=== PATIENT | male | born 1965 | race African-American/Black ===

== ENCOUNTER 2020-08-25 10:16 | Inpatient (IN) | payer MEDICAID ==
[~2020-08-25] VITALS: Ht 180.3 cm; Wt 105.7 kg
[2020-08-25 10:53] LABS: BASOPHILS % 0.9 % (0.0-2.0); EOSINOPHILS % 0.4 % (0.0-5.0); HEMATOCRIT. 44.6 % (42.0-52.0); HEMOGLOBIN. 15.2 g/dL (14.0-18.0); LYMPHOCYTES % 13.7 % (20.0-50.0); MEAN CORPUSCULAR HEMOGLOBIN 28.6 pg (28.0-32.0); MEAN CORPUSCULAR VOLUME 83.7 fL (80.0-94.0); MEAN PLATELET VOLUME 8.4 fl (7.4-10.4); MONOCYTES % 6.5 % (2.0-8.0); NEUTROPHILS % 78.5 % (40.0-76.0); PLATELET 224 x1000/uL (130-400); RED BLOOD CELL COUNT 5.33 mill/uL (4.7-6.1); RED CELL DISTRIBUTION WIDTH 15.6 % (11.6-14.6)
[2020-08-25 10:57] LABS: CHLORIDE 102 mEq/L (98-107)
[2020-08-25 10:59] LABS: PROTHROMBIN TIME 10.5 sec (9.6-11.0)
[2020-08-25 11:01] LABS: ETHANOL BLOOD < 10 mg/dL
[2020-08-25 11:04] LABS: LDL CHOLESTEROL 236 mg/dL (5-100)
[2020-08-25] MEDS ORDERED: ASPIRIN 325MG TABLET PO ONE (11:15)
[2020-08-25] MEDS ORDERED: ATORVASTATIN CALCIUM 40MG TABLET PO SCH (11:15)
[2020-08-25] MEDS ORDERED: CLOPIDOGREL 75MG TABLET PO ONE (11:30)
[2020-08-25] MEDS ORDERED: INSULIN REGULAR (HUMULIN R) 300UNITS/3ML VIAL IV ONE (12:00)
[2020-08-25] MEDS ORDERED: SODIUM CHLORIDE 0.9% 500 ML IV ONE (12:00)
[2020-08-25 12:39] LABS: CLARITY URINE CLEAR (CLEAR); COLOR URINE YELLOW (YELLOW); KETONES URINE 1+ (NEGATIVE); LEUKOCYTE ESTERASE URINE NEGATIVE (NEGATIVE); NITRITE URINE NEGATIVE (NEGATIVE); OCCULT BLOOD URINE TRACE (NEGATIVE); PROTEIN URINE 2+ (NEGATIVE); SPECIFIC GRAVITY URINE 1.047 (1.005-1.030)
[2020-08-25] MEDS ORDERED: ONDANSETRON HCL 4MG/2ML INJ IV PRN (12:45)
[2020-08-25] MEDS ORDERED: DEXTROSE 50% WATER 50ML SYRINGE IV PRN (12:45)
[2020-08-25 12:57] LABS: *AMPHETAMINES SCREEN URINE NEGATIVE (NEGATIVE); *BARBITURATES SCREEN URINE NEGATIVE (NEGATIVE); *BENZODIAZEPINES SCREEN URINE NEGATIVE (NEGATIVE); *COCAINE SCREEN URINE NEGATIVE (NEGATIVE)
[2020-08-25 12:58] LABS: METHADONE URINE SCREEN NEGATIVE (NEGATIVE); OPIATES URINE SCREEN NEGATIVE (NEGATIVE)
[2020-08-25] MEDS: BLOOD SUGAR DIAGNOSTIC STRIP TEST SCH ×3 (13:00→20:43)
[2020-08-25] MEDS ORDERED: LABETALOL 5MG/ML SYR 20 MG/4 ML SYRINGE IV NR (13:00)
[2020-08-25] MEDS ORDERED: LOSARTAN POTASSIUM 50 MG TABLET PO SCH ×2 (13:00→16:00)
[2020-08-25 13:01] LABS: CANNABINOID URINE SCREEN NEGATIVE (NEGATIVE); PHENCYCLIDINE URINE SCREEN NEGATIVE (NEGATIVE)
[2020-08-25 14:00] VITALS: BP 200/93
[2020-08-25 14:25] VITALS: BP 202/101
[2020-08-25] MEDS ORDERED: IOHEXOL-350 100 ML BOTTLE ONE (14:27)
[2020-08-25] MEDS: AMLODIPINE 10MG TABLET PO SCH (15:47)
[2020-08-25] MEDS: ENOXAPARIN 40MG/0.4ML SYR SUBCUT SCH (15:49)
[2020-08-25] MEDS: INSULIN LISPRO 100 UNITS/ML SUBCUT SCH ×3 (15:51→21:00)
[2020-08-25 16:00] VITALS: BP 225/121
[2020-08-25] MEDS: LOSARTAN POTASSIUM 50 MG TABLET PO SCH ×2 (16:00→22:11)
[2020-08-25] MEDS ORDERED: INSULIN GLARGINE UD 100 UNITS/ML SYR SUBCUT NR (16:30)
[2020-08-25 18:00] VITALS: BP 138/81
[2020-08-25 20:00] VITALS: BP 177/85
[2020-08-25] MEDS: ACETAMINOPHEN 325MG TABLET PO PRN (20:43)
[2020-08-25 22:00] VITALS: BP 169/95
[2020-08-25] MEDS: INSULIN GLARGINE UD 100 UNITS/ML SYR SUBCUT SCH (22:13)
[2020-08-26] VITALS (14 sets, daily range): BP systolic 118–202; BP diastolic 58–109
[2020-08-26] MEDS: ACETAMINOPHEN 325MG TABLET PO PRN (03:05)
[2020-08-26] MEDS: BLOOD SUGAR DIAGNOSTIC STRIP TEST SCH ×4 (07:51→20:51)
[2020-08-26] MEDS: CLOPIDOGREL 75MG TABLET PO SCH (08:48)
[2020-08-26] MEDS: LOSARTAN POTASSIUM 50 MG TABLET PO SCH ×2 (08:48→20:50)
[2020-08-26] MEDS: ASPIRIN 81MG TABLET PO SCH (08:48)
[2020-08-26] MEDS: INSULIN LISPRO 100 UNITS/ML SUBCUT SCH ×4 (08:48→21:06)
[2020-08-26] MEDS: AMLODIPINE 10MG TABLET PO SCH (08:49)
[2020-08-26] MEDS: CLONIDINE 0.1MG TABLET PO PRN (08:57)
[2020-08-26] MEDS: INSULIN GLARGINE UD 100 UNITS/ML SYR SUBCUT SCH ×2 (09:57→22:04)
[2020-08-26] MEDS: ENOXAPARIN 40MG/0.4ML SYR SUBCUT SCH (12:09)
[2020-08-26] MEDS: HYDRALAZINE HCL 100MG TABLET PO SCH ×3 (12:10→22:14)
[2020-08-26 17:49] LABS: BASOPHILS % 0.9 % (0.0-2.0); HEMATOCRIT. 45.7 % (42.0-52.0); HEMOGLOBIN. 15.7 g/dL (14.0-18.0); LYMPHOCYTES % 21.2 % (20.0-50.0); MEAN CORPUSCULAR HEMOGLOBIN 28.8 pg (28.0-32.0); MEAN CORPUSCULAR VOLUME 83.8 fL (80.0-94.0); MEAN PLATELET VOLUME 8.3 fl (7.4-10.4); MONOCYTES % 11.1 % (2.0-8.0); NEUTROPHILS % 65.8 % (40.0-76.0); PLATELET 250 x1000/uL (130-400); RED BLOOD CELL COUNT 5.45 mill/uL (4.7-6.1); RED CELL DISTRIBUTION WIDTH 16.2 % (11.6-14.6)
[2020-08-26 18:12] LABS: CHLORIDE 107 mEq/L (98-107)
[2020-08-26] MEDS ORDERED: POTASSIUM CHLORIDE 20MEQ TABLET SR PO NR (19:00)
[2020-08-26] MEDS: ATORVASTATIN CALCIUM 40MG TABLET PO SCH (20:50)
[2020-08-26] MEDS: LORAZEPAM 2MG/ML CPJ IV PRN (22:22)
[2020-08-27] VITALS (12 sets, daily range): BP systolic 122–181; BP diastolic 36–125
[2020-08-27 06:00] LABS: BASOPHILS % 0.5 % (0.0-2.0); EOSINOPHILS % 0.8 % (0.0-5.0); HEMATOCRIT. 46.2 % (42.0-52.0); HEMOGLOBIN. 15.9 g/dL (14.0-18.0); LYMPHOCYTES % 17.8 % (20.0-50.0); MEAN CORPUSCULAR VOLUME 84.5 fL (80.0-94.0); MEAN PLATELET VOLUME 8.6 fl (7.4-10.4); MONOCYTES % 7.2 % (2.0-8.0); NEUTROPHILS % 73.7 % (40.0-76.0); PLATELET 256 x1000/uL (130-400); RED BLOOD CELL COUNT 5.47 mill/uL (4.7-6.1); RED CELL DISTRIBUTION WIDTH 15.8 % (11.6-14.6)
[2020-08-27 06:03] LABS: CHLORIDE 103 mEq/L (98-107)
[2020-08-27 06:13] LABS: LDL CHOLESTEROL 236 mg/dL (5-100)
[2020-08-27 06:14] LABS: HDL CHOLESTEROL 57 mg/dL (40-59)
[2020-08-27 06:16] LABS: T4 FREE 0.91 ng/dL (0.76-1.46)
[2020-08-27 06:24] LABS: FOLIC ACID (FOLATE) SERUM >20 ng/mL ng/mL (>5.38)
[2020-08-27 06:35] LABS: VITAMIN B12 SERUM 761 pg/mL (211-911)
[2020-08-27] MEDS: BLOOD SUGAR DIAGNOSTIC STRIP TEST SCH ×4 (07:48→20:08)
[2020-08-27] MEDS: INSULIN LISPRO 100 UNITS/ML SUBCUT SCH ×4 (08:10→21:00)
[2020-08-27] MEDS: LOSARTAN POTASSIUM 50 MG TABLET PO SCH ×2 (09:15→21:09)
[2020-08-27] MEDS: CLOPIDOGREL 75MG TABLET PO SCH (09:15)
[2020-08-27] MEDS: AMLODIPINE 10MG TABLET PO SCH (09:16)
[2020-08-27] MEDS: ASPIRIN 81MG TABLET PO SCH (09:16)
[2020-08-27] MEDS: INSULIN GLARGINE UD 100 UNITS/ML SYR SUBCUT SCH ×2 (10:50→21:10)
[2020-08-27] MEDS: CLONIDINE 0.1MG TABLET PO PRN ×2 (10:58→22:23)
[2020-08-27] MEDS: SODIUM CHLORIDE 0.9% 1,000 ML IV SCH (14:03)
[2020-08-27] MEDS: ENOXAPARIN 40MG/0.4ML SYR SUBCUT SCH (17:10)
[2020-08-27] MEDS ORDERED: CEFTRIAXONE 1 G PREMIX 50 ML IV SCH (17:15)
[2020-08-27 17:31] LABS: BG BASE EXCESS 0.5 mmol/L (-2.0-2.0); BG CARBOXYHEMOGLOBIN 0.9 % (0.5-1.5); BG DEOXYHEMOGLOBIN 6.2 % (0.0-5.0); BG FRACTION INSPIRED OXYGEN 21; BG HCO3 ACT 24.7 mmol/L (22.0-26.0); BG METHEMOGLOBIN 0.1 % (0.0-1.5); BG OXYGEN SATURATION 93.7 % (92.0-98.5); BG OXYHEMOGLOBIN 92.8 % (94.0-97.0); BG PCO2 38.7 mmHg (35.0-45.0); BG PH 7.423 (7.350-7.450); BG PO2 67.1 mmHg (75.0-100.0); BG SAMPLE SITE RIGHT RADIAL; BG TOTAL HEMOGLOBIN 15.7 g/dL (12.0-18.0); BG VENT MODE ROOM AIR
[2020-08-27] MEDS: CEFTRIAXONE 1,000 MG in DEXTROSE 5% WATER 50 ML IV SCH (17:49)
[2020-08-27] MEDS: ATORVASTATIN CALCIUM 40MG TABLET PO SCH (21:08)
[2020-08-27] MEDS: LORAZEPAM 2MG/ML CPJ IV PRN (21:09)
[2020-08-28] VITALS (12 sets, daily range): BP systolic 88–179; BP diastolic 53–123
[2020-08-28] MEDS: SODIUM CHLORIDE 0.9% 1,000 ML IV SCH (02:30)
[2020-08-28] MEDS: BLOOD SUGAR DIAGNOSTIC STRIP TEST SCH ×4 (07:30→20:38)
[2020-08-28] MEDS: INSULIN LISPRO 100 UNITS/ML SUBCUT SCH ×4 (08:00→20:38)
[2020-08-28] MEDS: ASPIRIN 81MG TABLET PO SCH (09:16)
[2020-08-28] MEDS: CLOPIDOGREL 75MG TABLET PO SCH (09:16)
[2020-08-28] MEDS: AMLODIPINE 10MG TABLET PO SCH (09:16)
[2020-08-28] MEDS: LOSARTAN POTASSIUM 50 MG TABLET PO SCH ×2 (09:17→20:37)
[2020-08-28] MEDS: INSULIN GLARGINE UD 100 UNITS/ML SYR SUBCUT SCH (10:00)
[2020-08-28] MEDS: HYDRALAZINE HCL 50MG TABLET PO SCH ×2 (12:15→20:38)
[2020-08-28] MEDS: ENOXAPARIN 40MG/0.4ML SYR SUBCUT SCH (13:46)
[2020-08-28] MEDS: DEXTROSE 5% WATER 1,000 ML IV SCH (18:41)
[2020-08-28] MEDS: CEFTRIAXONE 1,000 MG in DEXTROSE 5% WATER 50 ML IV SCH (18:42)
[2020-08-28] MEDS: CLONIDINE 0.1MG TABLET PO PRN (18:51)
[2020-08-28] MEDS: ATORVASTATIN CALCIUM 40MG TABLET PO SCH (20:37)
[2020-08-28] MEDS: LORAZEPAM 2MG/ML CPJ IV PRN (22:10)
[2020-08-29] VITALS (59 sets, daily range): BP systolic 81–195; BP diastolic 52–135
[2020-08-29] MEDS: CLONIDINE 0.1MG TABLET PO PRN ×2 (04:10→22:15)
[2020-08-29] MEDS: DEXTROSE 5% WATER 1,000 ML IV SCH ×2 (04:12→17:10)
[2020-08-29] MEDS: LORAZEPAM 2MG/ML CPJ IV PRN (07:47)
[2020-08-29] MEDS: BLOOD SUGAR DIAGNOSTIC STRIP TEST SCH ×4 (07:52→20:40)
[2020-08-29] MEDS: ASPIRIN 81MG TABLET PO SCH ×2 (08:39→08:49)
[2020-08-29] MEDS: AMLODIPINE 10MG TABLET PO SCH ×2 (08:40→08:50)
[2020-08-29] MEDS: LOSARTAN POTASSIUM 50 MG TABLET PO SCH ×3 (08:40→20:40)
[2020-08-29] MEDS: HYDRALAZINE HCL 50MG TABLET PO SCH ×2 (08:40→08:49)
[2020-08-29] MEDS: INSULIN LISPRO 100 UNITS/ML SUBCUT SCH ×4 (08:42→20:40)
[2020-08-29] MEDS: CLOPIDOGREL 75MG TABLET PO SCH ×2 (08:43→08:50)
[2020-08-29] MEDS ORDERED: ETOMIDATE 2MG/ML 10ML VIAL IV ONE (10:30)
[2020-08-29] MEDS: PROPOFOL 10MG/ML 100ML 100 ML IV PRN ×2 (10:54→16:47)
[2020-08-29] MEDS ORDERED: MORPHINE SULFATE 2 MG/ML CPJ (NOT FOR IM USE) IV PRN (11:15)
[2020-08-29] MEDS ORDERED: IOHEXOL-350 100 ML BOTTLE ONE (11:26)
[2020-08-29] MEDS ORDERED: PHENYLEPHRINE 50 MG in DEXT 5% WATER 245 ML IV PRN (12:15)
[2020-08-29 12:51] LABS: BG CARBOXYHEMOGLOBIN 0.4 % (0.5-1.5); BG DEOXYHEMOGLOBIN 1.1 % (0.0-5.0); BG FRACTION INSPIRED OXYGEN 100; BG HCO3 ACT 25.9 mmol/L (22.0-26.0); BG METHEMOGLOBIN 0.3 % (0.0-1.5); BG OXYGEN SATURATION 98.9 % (92.0-98.5); BG OXYHEMOGLOBIN 98.2 % (94.0-97.0); BG PCO2 51.6 mmHg (35.0-45.0); BG PH 7.318 (7.350-7.450); BG PO2 218.8 mmHg (75.0-100.0); BG SAMPLE SITE RIGHT RADIAL; BG VENT MODE VENT - AC
[2020-08-29] MEDS: MIDODRINE HCL 5MG TABLET PO SCH ×2 (13:00→17:00)
[2020-08-29] MEDS: ENOXAPARIN 40MG/0.4ML SYR SUBCUT SCH (13:39)
[2020-08-29] MEDS: PANTOPRAZOLE SODIUM 40 MG/VIAL IV SCH (13:40)
[2020-08-29] MEDS ORDERED: LIDOCAINE HCL 1% 20ML VIAL (Pyxis) INJ ONE (13:45)
[2020-08-29 17:51] LABS: BASOPHILS % 0.5 % (0.0-2.0); EOSINOPHILS % 1.7 % (0.0-5.0); HEMATOCRIT. 40.4 % (42.0-52.0); HEMOGLOBIN. 13.7 g/dL (14.0-18.0); MEAN CORPUSCULAR HEMOGLOBIN 29.2 pg (28.0-32.0); MEAN PLATELET VOLUME 7.9 fl (7.4-10.4); MONOCYTES % 12.5 % (2.0-8.0); NEUTROPHILS % 67.3 % (40.0-76.0); PLATELET 211 x1000/uL (130-400); RED BLOOD CELL COUNT 4.69 mill/uL (4.7-6.1)
[2020-08-29 18:02] LABS: CHLORIDE 106 mEq/L (98-107)
[2020-08-29] MEDS: CEFTRIAXONE 1,000 MG in DEXTROSE 5% WATER 50 ML IV SCH (18:30)
[2020-08-29 19:08] LABS: RNP ANTIBODY < 0.2 AI (0.0-0.9); SMITH ANTIBODY < 0.2 AI (0.0-0.9)
[2020-08-29] MEDS: ATORVASTATIN CALCIUM 40MG TABLET PO SCH (20:47)
[2020-08-29 23:25] LABS: BG BASE EXCESS -3.8 mmol/L (-2.0-2.0); BG CARBOXYHEMOGLOBIN 0.7 % (0.5-1.5); BG DEOXYHEMOGLOBIN 3.2 % (0.0-5.0); BG FRACTION INSPIRED OXYGEN 50; BG HCO3 ACT 21.1 mmol/L (22.0-26.0); BG OXYGEN SATURATION 96.8 % (92.0-98.5); BG OXYHEMOGLOBIN 96.1 % (94.0-97.0); BG PCO2 38.2 mmHg (35.0-45.0); BG PH 7.361 (7.350-7.450); BG PO2 94.4 mmHg (75.0-100.0); BG SAMPLE SITE RIGHT RADIAL; BG TOTAL HEMOGLOBIN 14.8 g/dL (12.0-18.0); BG VENT MODE MASK - VENTI
[2020-08-30] VITALS (57 sets, daily range): BP systolic 121–187; BP diastolic 39–129
[2020-08-30 04:07] LABS: ANTI-CARDIOLIPIN AB IGA < 9 APL U/mL (0-11); ANTI-CARDIOLIPIN AB IGG < 9 GPL U/mL (0-14); ANTI-CARDIOLIPIN AB IGM < 9 MPL U/mL (0-12)
[2020-08-30 05:38] LABS: CHLORIDE 106 mEq/L (98-107)
[2020-08-30 05:42] LABS: BASOPHILS % 0.8 % (0.0-2.0); EOSINOPHILS % 1.9 % (0.0-5.0); HEMATOCRIT. 40.7 % (42.0-52.0); HEMOGLOBIN. 13.8 g/dL (14.0-18.0); LYMPHOCYTES % 13.7 % (20.0-50.0); MEAN CORPUSCULAR HEMOGLOBIN 28.8 pg (28.0-32.0); MEAN PLATELET VOLUME 8.2 fl (7.4-10.4); MONOCYTES % 10.3 % (2.0-8.0); NEUTROPHILS % 73.3 % (40.0-76.0); PLATELET 215 x1000/uL (130-400); RED BLOOD CELL COUNT 4.79 mill/uL (4.7-6.1); RED CELL DISTRIBUTION WIDTH 15.5 % (11.6-14.6)
[2020-08-30] MEDS: BLOOD SUGAR DIAGNOSTIC STRIP TEST SCH ×4 (05:53→20:59)
[2020-08-30] MEDS: INSULIN LISPRO 100 UNITS/ML SUBCUT SCH ×4 (06:05→21:00)
[2020-08-30] MEDS: ENALAPRIL 1.25MG/ML VIAL 1ML IV PRN ×2 (06:30→18:36)
[2020-08-30] MEDS ORDERED: NITROGLYCERIN 50MG PREMIX 250 ML IV PRN (08:00)
[2020-08-30] MEDS: MIDODRINE HCL 5MG TABLET PO SCH (09:00)
[2020-08-30 09:11] LABS: ANTI-THROMBIN ACTIVITY 112 % (75-135); DRVVT LA 44.8 sec (0.0-47.0); PROTEIN C FUNCTIONAL 155 % (73-180); PTT-LA 39.4 sec (0.0-51.9)
[2020-08-30] MEDS: LOSARTAN POTASSIUM 50 MG TABLET PO SCH ×2 (09:32→20:58)
[2020-08-30] MEDS: CLOPIDOGREL 75MG TABLET PO SCH (09:32)
[2020-08-30] MEDS: ASPIRIN 81MG TABLET PO SCH (09:32)
[2020-08-30] MEDS: PANTOPRAZOLE SODIUM 40 MG/VIAL IV SCH (09:32)
[2020-08-30] MEDS: DEXTROSE 5% WATER 1,000 ML IV SCH (09:33)
[2020-08-30] MEDS: AMLODIPINE 10MG TABLET PO SCH (11:21)
[2020-08-30] MEDS: ENOXAPARIN 40MG/0.4ML SYR SUBCUT SCH (12:34)
[2020-08-30] MEDS: RISPERIDONE 0.25MG TABLET PO SCH (12:34)
[2020-08-30 13:07] LABS: LUPUS ANTICOAG INTERPRETATION Comment: (.)
[2020-08-30] MEDS: CEFTRIAXONE 1,000 MG in DEXTROSE 5% WATER 50 ML IV SCH (18:25)
[2020-08-30] MEDS: ATORVASTATIN CALCIUM 40MG TABLET PO SCH (20:56)
[2020-08-30] MEDS: MORPHINE SULFATE 2 MG/ML CPJ (NOT FOR IM USE) IV PRN (20:58)
[2020-08-30] MEDS: HYDRALAZINE HCL 50MG TABLET PO SCH (20:58)
[2020-08-31] VITALS (10 sets, daily range): BP systolic 127–179; BP diastolic 68–110
[2020-08-31] MEDS: DEXTROSE 5% WATER 1,000 ML IV SCH ×2 (04:46→09:46)
[2020-08-31] MEDS: ENALAPRIL 1.25MG/ML VIAL 1ML IV PRN (05:50)
[2020-08-31] MEDS: CLONIDINE 0.1MG TABLET PO PRN (06:48)
[2020-08-31] MEDS: AMLODIPINE 10MG TABLET PO SCH (08:01)
[2020-08-31] MEDS: CLOPIDOGREL 75MG TABLET PO SCH (08:01)
[2020-08-31] MEDS: ASPIRIN 81MG TABLET PO SCH (08:01)
[2020-08-31] MEDS: HYDRALAZINE HCL 50MG TABLET PO SCH ×2 (08:02→22:08)
[2020-08-31] MEDS: RISPERIDONE 0.25MG TABLET PO SCH (08:02)
[2020-08-31] MEDS: PANTOPRAZOLE SODIUM 40 MG/VIAL IV SCH (08:02)
[2020-08-31] MEDS: LOSARTAN POTASSIUM 50 MG TABLET PO SCH ×2 (08:02→22:07)
[2020-08-31] MEDS: BLOOD SUGAR DIAGNOSTIC STRIP TEST SCH ×4 (08:03→21:00)
[2020-08-31] MEDS: INSULIN LISPRO 100 UNITS/ML SUBCUT SCH ×4 (08:03→22:25)
[2020-08-31] MEDS ORDERED: LORAZEPAM 2MG/ML CPJ IM PRN (09:00)
[2020-08-31] MEDS: LORAZEPAM 2MG/ML CPJ IV PRN (09:20)
[2020-08-31] MEDS: ENOXAPARIN 40MG/0.4ML SYR SUBCUT SCH (12:26)
[2020-08-31] MEDS: RISPERIDONE 0.5MG TABLET PO SCH (16:09)
[2020-08-31] MEDS: MORPHINE SULFATE 2 MG/ML CPJ (NOT FOR IM USE) IV PRN (16:10)
[2020-08-31 16:39] LABS: BASOPHILS % 0.7 % (0.0-2.0); EOSINOPHILS % 1.7 % (0.0-5.0); HEMATOCRIT. 39.4 % (42.0-52.0); HEMOGLOBIN. 13.4 g/dL (14.0-18.0); LYMPHOCYTES % 14.4 % (20.0-50.0); MEAN CORPUSCULAR HEMOGLOBIN 28.8 pg (28.0-32.0); MEAN CORPUSCULAR VOLUME 84.6 fL (80.0-94.0); MONOCYTES % 11.1 % (2.0-8.0); NEUTROPHILS % 72.1 % (40.0-76.0); PLATELET 228 x1000/uL (130-400); RED BLOOD CELL COUNT 4.66 mill/uL (4.7-6.1); RED CELL DISTRIBUTION WIDTH 15.4 % (11.6-14.6)
[2020-08-31 17:01] LABS: CHLORIDE 105 mEq/L (98-107)
[2020-08-31] MEDS: CEFTRIAXONE 1,000 MG in DEXTROSE 5% WATER 50 ML IV SCH (17:48)
[2020-08-31] MEDS: ATORVASTATIN CALCIUM 40MG TABLET PO SCH (22:07)
[2020-09-01] VITALS (12 sets, daily range): BP systolic 131–196; BP diastolic 71–116
[2020-09-01] MEDS: DEXTROSE 5% WATER 1,000 ML IV SCH ×2 (01:10→13:45)
[2020-09-01] MEDS: BLOOD SUGAR DIAGNOSTIC STRIP TEST SCH ×4 (07:30→21:00)
[2020-09-01] MEDS: RISPERIDONE 0.5MG TABLET PO SCH ×2 (09:01→18:02)
[2020-09-01] MEDS: PANTOPRAZOLE SODIUM 40 MG/VIAL IV SCH (09:01)
[2020-09-01] MEDS: AMLODIPINE 10MG TABLET PO SCH (09:01)
[2020-09-01] MEDS: CLOPIDOGREL 75MG TABLET PO SCH (09:02)
[2020-09-01] MEDS: HYDRALAZINE HCL 50MG TABLET PO SCH (09:02)
[2020-09-01] MEDS: LOSARTAN POTASSIUM 50 MG TABLET PO SCH ×3 (09:02→22:28)
[2020-09-01] MEDS: ASPIRIN 81MG TABLET PO SCH (09:02)
[2020-09-01] MEDS: INSULIN LISPRO 100 UNITS/ML SUBCUT SCH ×3 (09:06→18:04)
[2020-09-01] MEDS: HYDRALAZINE HCL 100MG TABLET PO SCH ×3 (13:43→22:28)
[2020-09-01] MEDS: ENOXAPARIN 40MG/0.4ML SYR SUBCUT SCH (13:45)
[2020-09-01] MEDS: MORPHINE SULFATE 2 MG/ML CPJ (NOT FOR IM USE) IV PRN (13:46)
[2020-09-01] MEDS: ATORVASTATIN CALCIUM 40MG TABLET PO SCH ×2 (21:00→22:28)
[2020-09-02] VITALS (12 sets, daily range): BP systolic 118–175; BP diastolic 54–106
[2020-09-02] MEDS: INSULIN LISPRO 100 UNITS/ML SUBCUT SCH ×5 (00:08→21:00)
[2020-09-02] MEDS: DEXTROSE 5% WATER 1,000 ML IV SCH (03:04)
[2020-09-02] MEDS: HYDRALAZINE HCL 100MG TABLET PO SCH ×3 (06:00→22:00)
[2020-09-02] MEDS: BLOOD SUGAR DIAGNOSTIC STRIP TEST SCH ×4 (07:30→21:00)
[2020-09-02] MEDS: LOSARTAN POTASSIUM 50 MG TABLET PO SCH ×2 (09:00→21:00)
[2020-09-02] MEDS: RISPERIDONE 0.5MG TABLET PO SCH ×2 (09:00→17:00)
[2020-09-02] MEDS: PANTOPRAZOLE SODIUM 40 MG/VIAL IV SCH (09:00)
[2020-09-02] MEDS: AMLODIPINE 10MG TABLET PO SCH (09:00)
[2020-09-02] MEDS: ASPIRIN 81MG TABLET PO SCH (09:00)
[2020-09-02 09:06] LABS: PTT-LA 37.6 sec (0.0-51.9)
[2020-09-02] MEDS ORDERED: CEFAZOLIN 1000MG PREMIX 50 ML IV SCH (10:00)
[2020-09-02 10:08] LABS: LUPUS ANTICOAG INTERPRETATION Comment: (.)
[2020-09-02 12:07] LABS: BASOPHILS % 0.6 % (0.0-2.0); EOSINOPHILS % 1.1 % (0.0-5.0); HEMATOCRIT. 38.7 % (42.0-52.0); HEMOGLOBIN. 13.1 g/dL (14.0-18.0); LYMPHOCYTES % 9.7 % (20.0-50.0); MEAN CORPUSCULAR HEMOGLOBIN 28.8 pg (28.0-32.0); MEAN CORPUSCULAR VOLUME 85.1 fL (80.0-94.0); MEAN PLATELET VOLUME 7.4 fl (7.4-10.4); MONOCYTES % 14.2 % (2.0-8.0); NEUTROPHILS % 74.4 % (40.0-76.0); PLATELET 271 x1000/uL (130-400); RED BLOOD CELL COUNT 4.54 mill/uL (4.7-6.1); RED CELL DISTRIBUTION WIDTH 15.7 % (11.6-14.6)
[2020-09-02] MEDS: SODIUM CHLORIDE 0.9% 1,000 ML IV SCH (14:03)
[2020-09-02] MEDS: ATORVASTATIN CALCIUM 40MG TABLET PO SCH (21:00)
[2020-09-03] VITALS (66 sets, daily range): BP systolic 73–217; BP diastolic 46–136
[2020-09-03] MEDS: SODIUM CHLORIDE 0.9% 1,000 ML IV SCH ×3 (00:01→19:46)
[2020-09-03] MEDS: ENALAPRIL 1.25MG/ML VIAL 1ML IV PRN ×2 (00:02→16:44)
[2020-09-03] MEDS: LORAZEPAM 2MG/ML CPJ IV PRN (01:56)
[2020-09-03] MEDS ORDERED: CEFAZOLIN 1000MG PREMIX 50 ML IV SCH ×2 (05:00→10:00)
[2020-09-03] MEDS: HYDRALAZINE HCL 100MG TABLET PO SCH ×3 (05:14→20:23)
[2020-09-03 06:58] LABS: INR 1.1; PROTHROMBIN TIME 11.3 sec (9.6-11.0)
[2020-09-03 07:06] LABS: BASOPHILS % 0.6 % (0.0-2.0); EOSINOPHILS % 1.3 % (0.0-5.0); HEMATOCRIT. 38.7 % (42.0-52.0); HEMOGLOBIN. 12.9 g/dL (14.0-18.0); LYMPHOCYTES % 10.5 % (20.0-50.0); MEAN CORPUSCULAR HEMOGLOBIN 28.7 pg (28.0-32.0); MEAN CORPUSCULAR VOLUME 85.9 fL (80.0-94.0); MONOCYTES % 6.3 % (2.0-8.0); NEUTROPHILS % 81.3 % (40.0-76.0); PLATELET 379 x1000/uL (130-400); RED CELL DISTRIBUTION WIDTH 15.5 % (11.6-14.6)
[2020-09-03 07:19] LABS: CHLORIDE 104 mEq/L (98-107)
[2020-09-03] MEDS: BLOOD SUGAR DIAGNOSTIC STRIP TEST SCH ×4 (07:33→20:23)
[2020-09-03] MEDS: INSULIN LISPRO 100 UNITS/ML SUBCUT SCH ×4 (08:43→20:24)
[2020-09-03] MEDS: PANTOPRAZOLE SODIUM 40 MG/VIAL IV SCH (08:43)
[2020-09-03] MEDS: ASPIRIN 81MG TABLET PO SCH (09:00)
[2020-09-03] MEDS: AMLODIPINE 10MG TABLET PO SCH (09:00)
[2020-09-03] MEDS: RISPERIDONE 0.5MG TABLET PO SCH (09:00)
[2020-09-03] MEDS: LOSARTAN POTASSIUM 50 MG TABLET PO SCH ×2 (09:00→20:23)
[2020-09-03 11:30] LABS: BG CARBOXYHEMOGLOBIN 1.2 % (0.5-1.5); BG FRACTION INSPIRED OXYGEN 32; BG METHEMOGLOBIN 0.1 % (0.0-1.5); BG OXYGEN SATURATION 94.9 % (92.0-98.5); BG OXYHEMOGLOBIN 93.7 % (94.0-97.0); BG PCO2 50.5 mmHg (35.0-45.0); BG PH 7.294 (7.350-7.450); BG PO2 76.7 mmHg (75.0-100.0); BG SAMPLE SITE RIGHT RADIAL; BG TOTAL HEMOGLOBIN 14.1 g/dL (12.0-18.0); BG VENT MODE NASAL CANNULA
[2020-09-03] MEDS ORDERED: MIDAZOLAM HCL 5 MG/5 ML VIAL ONE (14:11)
[2020-09-03] MEDS ORDERED: FENTANYL CITRATE/PF 50MCG/ML 2ML VIAL ONE (14:11)
[2020-09-03] MEDS: PIPERACILLIN/TAZOBACTAM 3.375 G in DEXT 5% WATER 100 ML IV SCH ×2 (16:00→20:22)
[2020-09-03] MEDS: PROPOFOL 10MG/ML 100ML 100 ML IV PRN ×2 (17:01→21:29)
[2020-09-03 17:05] LABS: BG BASE EXCESS -5.3 mmol/L (-2.0-2.0); BG CARBOXYHEMOGLOBIN 0.5 % (0.5-1.5); BG FRACTION INSPIRED OXYGEN 100; BG HCO3 ACT 18.2 mmol/L (22.0-26.0); BG METHEMOGLOBIN 0.2 % (0.0-1.5); BG OXYHEMOGLOBIN 98.3 % (94.0-97.0); BG PCO2 29.8 mmHg (35.0-45.0); BG PH 7.403 (7.350-7.450); BG PO2 190.7 mmHg (75.0-100.0); BG SAMPLE SITE RIGHT RADIAL; BG TOTAL HEMOGLOBIN 13.4 g/dL (12.0-18.0); BG VENT MODE VENT - AC
[2020-09-03] MEDS ORDERED: VANCOMYCIN 1,750 MG in DEXT 5% WATER 250 ML IV SCH (19:00)
[2020-09-03] MEDS: ATORVASTATIN CALCIUM 40MG TABLET PO SCH (20:23)
[2020-09-03] MEDS: FENTANYL CITRATE/PF 1,000 MCG in SODIUM CHLORIDE 0.9% 80 ML IV PRN (21:42)
[2020-09-04] VITALS (93 sets, daily range): BP systolic 89–144; BP diastolic 57–91
[2020-09-04] MEDS: PIPERACILLIN/TAZOBACTAM 3.375 G in DEXT 5% WATER 100 ML IV SCH ×4 (01:53→20:38)
[2020-09-04] MEDS: SODIUM CHLORIDE 0.9% 1,000 ML IV SCH ×2 (01:54→14:07)
[2020-09-04] MEDS: PROPOFOL 10MG/ML 100ML 100 ML IV PRN ×3 (01:56→14:10)
[2020-09-04] MEDS: HYDRALAZINE HCL 100MG TABLET PO SCH ×3 (04:37→21:39)
[2020-09-04] MEDS: BLOOD SUGAR DIAGNOSTIC STRIP TEST SCH ×4 (05:45→21:09)
[2020-09-04] MEDS: INSULIN LISPRO 100 UNITS/ML SUBCUT SCH ×4 (05:45→21:00)
[2020-09-04 06:23] LABS: HEMATOCRIT. 34.4 % (42.0-52.0); HEMOGLOBIN. 11.8 g/dL (14.0-18.0); MEAN CORPUSCULAR HEMOGLOBIN 29.1 pg (28.0-32.0); MEAN PLATELET VOLUME 7.8 fl (7.4-10.4); PLATELET 233 x1000/uL (130-400); RED BLOOD CELL COUNT 4.04 mill/uL (4.7-6.1); RED CELL DISTRIBUTION WIDTH 15.2 % (11.6-14.6)
[2020-09-04] MEDS ORDERED: VANCOMYCIN 1 G PREMIX 200 ML IV SCH (07:00)
[2020-09-04] MEDS: ASPIRIN 81MG TABLET PO SCH (08:14)
[2020-09-04] MEDS: LOSARTAN POTASSIUM 50 MG TABLET PO SCH ×2 (08:15→20:38)
[2020-09-04] MEDS: AMLODIPINE 10MG TABLET PO SCH (08:15)
[2020-09-04] MEDS: PANTOPRAZOLE SODIUM 40 MG/VIAL IV SCH (08:27)
[2020-09-04 10:12] LABS: PLATELET ESTIMATE NORMAL
[2020-09-04 10:43] LABS: BG BASE EXCESS -1.8 mmol/L (-2.0-2.0); BG DEOXYHEMOGLOBIN 3.9 % (0.0-5.0); BG FRACTION INSPIRED OXYGEN 40; BG METHEMOGLOBIN 0.3 % (0.0-1.5); BG OXYGEN SATURATION 96.1 % (92.0-98.5); BG OXYHEMOGLOBIN 95.8 % (94.0-97.0); BG PCO2 44.7 mmHg (35.0-45.0); BG PH 7.347 (7.350-7.450); BG PO2 87.4 mmHg (75.0-100.0); BG SAMPLE SITE RIGHT RADIAL; BG TOTAL HEMOGLOBIN 13.6 g/dL (12.0-18.0); BG VENT MODE VENT - AC
[2020-09-04] MEDS ORDERED: FENTANYL CITRATE/PF 50MCG/ML 2ML VIAL ONE (11:31)
[2020-09-04] MEDS ORDERED: MIDAZOLAM HCL 5 MG/5 ML VIAL ONE (11:31)
[2020-09-04] MEDS: METOCLOPRAMIDE HCL 10MG/2ML VIAL IV SCH ×3 (13:02→23:50)
[2020-09-04] MEDS: FENTANYL CITRATE/PF 1,000 MCG in SODIUM CHLORIDE 0.9% 80 ML IV PRN (14:08)
[2020-09-04] MEDS: ATORVASTATIN CALCIUM 40MG TABLET PO SCH (20:38)
[2020-09-05] VITALS (91 sets, daily range): BP systolic 83–157; BP diastolic 26–114
[2020-09-05] MEDS ORDERED: VANCOMYCIN 1 G PREMIX 200 ML IV SCH
[2020-09-05] MEDS: PROPOFOL 10MG/ML 100ML 100 ML IV PRN ×5 (01:10→20:09)
[2020-09-05] MEDS: PIPERACILLIN/TAZOBACTAM 3.375 G in DEXT 5% WATER 100 ML IV SCH ×3 (03:25→14:24)
[2020-09-05] MEDS: SODIUM CHLORIDE 0.9% 1,000 ML IV SCH ×2 (03:26→14:11)
[2020-09-05] MEDS: METOCLOPRAMIDE HCL 10MG/2ML VIAL IV SCH ×4 (05:23→23:36)
[2020-09-05 05:37] LABS: BASOPHILS % 0.4 % (0.0-2.0); EOSINOPHILS % 2.6 % (0.0-5.0); HEMATOCRIT. 34.4 % (42.0-52.0); HEMOGLOBIN. 11.6 g/dL (14.0-18.0); LYMPHOCYTES % 11.5 % (20.0-50.0); MEAN CORPUSCULAR HEMOGLOBIN 28.9 pg (28.0-32.0); MEAN CORPUSCULAR VOLUME 86.2 fL (80.0-94.0); MEAN PLATELET VOLUME 7.8 fl (7.4-10.4); MONOCYTES % 14.2 % (2.0-8.0); NEUTROPHILS % 71.3 % (40.0-76.0); PLATELET 238 x1000/uL (130-400); RED CELL DISTRIBUTION WIDTH 15.4 % (11.6-14.6)
[2020-09-05] MEDS: HYDRALAZINE HCL 100MG TABLET PO SCH (05:38)
[2020-09-05] MEDS: BLOOD SUGAR DIAGNOSTIC STRIP TEST SCH ×4 (05:42→20:53)
[2020-09-05] MEDS: INSULIN LISPRO 100 UNITS/ML SUBCUT SCH ×4 (07:00→20:53)
[2020-09-05] MEDS: ASPIRIN 81MG TABLET PO SCH (08:39)
[2020-09-05] MEDS: PANTOPRAZOLE SODIUM 40 MG/VIAL IV SCH (08:39)
[2020-09-05] MEDS: LOSARTAN POTASSIUM 50 MG TABLET PO SCH (08:40)
[2020-09-05] MEDS: AMLODIPINE 10MG TABLET PO SCH (08:40)
[2020-09-05] MEDS: FENTANYL CITRATE/PF 1,000 MCG in SODIUM CHLORIDE 0.9% 80 ML IV PRN (08:53)
[2020-09-05] MEDS: IPRATROPIUM/ALBUTEROL 0.5-3(2.5)MG/3ML NEB HHN PRN ×4 (09:03→22:11)
[2020-09-05 11:32] LABS: BG BASE EXCESS -6.5 mmol/L (-2.0-2.0); BG CARBOXYHEMOGLOBIN 0.3 % (0.5-1.5); BG DEOXYHEMOGLOBIN 1.5 % (0.0-5.0); BG FRACTION INSPIRED OXYGEN 100; BG HCO3 ACT 20.3 mmol/L (22.0-26.0); BG METHEMOGLOBIN 0.1 % (0.0-1.5); BG OXYGEN SATURATION 98.5 % (92.0-98.5); BG OXYHEMOGLOBIN 98.1 % (94.0-97.0); BG PCO2 45.7 mmHg (35.0-45.0); BG PH 7.265 (7.350-7.450); BG PO2 180.6 mmHg (75.0-100.0); BG SAMPLE SITE RIGHT RADIAL; BG TOTAL HEMOGLOBIN 11.4 g/dL (12.0-18.0); BG TOTAL RESPIRATORY RATE 16 b/min; BG VENT MODE VENT - AC
[2020-09-05] MEDS: ATORVASTATIN CALCIUM 40MG TABLET PO SCH (20:52)
[2020-09-05] MEDS: PIPERACILLIN/TAZOBACTAM 2.25 G in DEXTROSE 5% WATER 50 ML IV SCH (20:52)
[2020-09-06] VITALS (101 sets, daily range): BP systolic 37–196; BP diastolic 57–110
[2020-09-06] MEDS: FENTANYL CITRATE/PF 1,000 MCG in SODIUM CHLORIDE 0.9% 80 ML IV PRN ×2 (00:23→11:47)
[2020-09-06] MEDS: PROPOFOL 10MG/ML 100ML 100 ML IV PRN ×3 (00:26→11:45)
[2020-09-06] MEDS: SODIUM CHLORIDE 0.9% 1,000 ML IV SCH ×3 (02:02→16:26)
[2020-09-06] MEDS: PIPERACILLIN/TAZOBACTAM 2.25 G in DEXTROSE 5% WATER 50 ML IV SCH ×4 (03:09→21:20)
[2020-09-06 04:55] LABS: BASOPHILS % 0.4 % (0.0-2.0); HEMATOCRIT. 32.2 % (42.0-52.0); HEMOGLOBIN. 10.8 g/dL (14.0-18.0); LYMPHOCYTES % 12.9 % (20.0-50.0); MEAN CORPUSCULAR HEMOGLOBIN 28.9 pg (28.0-32.0); MEAN CORPUSCULAR VOLUME 86.2 fL (80.0-94.0); MEAN PLATELET VOLUME 7.6 fl (7.4-10.4); MONOCYTES % 10.6 % (2.0-8.0); NEUTROPHILS % 74.1 % (40.0-76.0); PLATELET 267 x1000/uL (130-400); RED BLOOD CELL COUNT 3.73 mill/uL (4.7-6.1); RED CELL DISTRIBUTION WIDTH 15.9 % (11.6-14.6)
[2020-09-06] MEDS: METOCLOPRAMIDE HCL 10MG/2ML VIAL IV SCH (05:57)
[2020-09-06] MEDS: BLOOD SUGAR DIAGNOSTIC STRIP TEST SCH ×4 (05:58→21:11)
[2020-09-06] MEDS: INSULIN LISPRO 100 UNITS/ML SUBCUT SCH ×4 (06:00→21:00)
[2020-09-06] MEDS: PANTOPRAZOLE SODIUM 40 MG/VIAL IV SCH (08:42)
[2020-09-06 10:09] LABS: BG BASE EXCESS -7.3 mmol/L (-2.0-2.0); BG CARBOXYHEMOGLOBIN 0.3 % (0.5-1.5); BG DEOXYHEMOGLOBIN 4.3 % (0.0-5.0); BG FRACTION INSPIRED OXYGEN 40; BG HCO3 ACT 19.9 mmol/L (22.0-26.0); BG OXYGEN SATURATION 95.7 % (92.0-98.5); BG OXYHEMOGLOBIN 95.4 % (94.0-97.0); BG PCO2 47.4 mmHg (35.0-45.0); BG PH 7.241 (7.350-7.450); BG PO2 90.8 mmHg (75.0-100.0); BG SAMPLE SITE LEFT RADIAL; BG TOTAL HEMOGLOBIN 11.1 g/dL (12.0-18.0); BG TOTAL RESPIRATORY RATE 18 b/min; BG VENT MODE VENT - AC
[2020-09-06] MEDS ORDERED: ROCURONIUM BROMIDE 10MG/ML VIAL 5ML IV ONE (10:33)
[2020-09-06] MEDS: CLONIDINE 0.1MG TABLET PO PRN ×2 (11:42→21:50)
[2020-09-06] MEDS: ENALAPRIL 2.5MG/2ML VIAL 2ML IV PRN ×2 (11:42→20:37)
[2020-09-06] MEDS: ATORVASTATIN CALCIUM 40MG TABLET PO SCH (21:18)
[2020-09-06] MEDS: AMLODIPINE 5MG TABLET PO SCH (21:19)
[2020-09-06] MEDS: LORAZEPAM 2MG/ML CPJ IV PRN (21:49)
[2020-09-07] VITALS (98 sets, daily range): BP systolic 106–200; BP diastolic 58–125
[2020-09-07] MEDS: MORPHINE SULFATE 2 MG/ML CPJ (NOT FOR IM USE) IV PRN (01:58)
[2020-09-07] MEDS: ENALAPRIL 2.5MG/2ML VIAL 2ML IV PRN ×2 (02:51→08:52)
[2020-09-07] MEDS: SODIUM CHLORIDE 0.9% 1,000 ML IV SCH ×2 (03:00→13:22)
[2020-09-07] MEDS: PIPERACILLIN/TAZOBACTAM 2.25 G in DEXTROSE 5% WATER 50 ML IV SCH ×4 (03:39→21:36)
[2020-09-07 05:00] LABS: BASOPHILS % 0.5 % (0.0-2.0); EOSINOPHILS % 2.1 % (0.0-5.0); HEMATOCRIT. 31.2 % (42.0-52.0); HEMOGLOBIN. 10.5 g/dL (14.0-18.0); LYMPHOCYTES % 10.9 % (20.0-50.0); MEAN CORPUSCULAR VOLUME 86.3 fL (80.0-94.0); MEAN PLATELET VOLUME 7.3 fl (7.4-10.4); NEUTROPHILS % 73.5 % (40.0-76.0); PLATELET 272 x1000/uL (130-400); RED BLOOD CELL COUNT 3.62 mill/uL (4.7-6.1); RED CELL DISTRIBUTION WIDTH 15.9 % (11.6-14.6)
[2020-09-07] MEDS: LORAZEPAM 2MG/ML CPJ IV PRN ×2 (05:06→13:21)
[2020-09-07] MEDS: CLONIDINE 0.1MG TABLET PO PRN (06:53)
[2020-09-07] MEDS: BLOOD SUGAR DIAGNOSTIC STRIP TEST SCH ×4 (07:15→21:24)
[2020-09-07] MEDS: INSULIN LISPRO 100 UNITS/ML SUBCUT SCH ×4 (07:21→21:37)
[2020-09-07] MEDS: DOCUSATE SODIUM SUGAR FREE 100MG/10ML UDC NG SCH (08:51)
[2020-09-07] MEDS: PANTOPRAZOLE SODIUM 40 MG/VIAL IV SCH (08:52)
[2020-09-07] MEDS: AMLODIPINE 5MG TABLET PO SCH ×2 (08:52→21:35)
[2020-09-07] MEDS ORDERED: HYDRALAZINE HCL 100MG TABLET PO NR (09:30)
[2020-09-07] MEDS: FENTANYL CITRATE/PF 1,000 MCG in SODIUM CHLORIDE 0.9% 80 ML IV PRN (10:18)
[2020-09-07] MEDS: CLONIDINE 0.1MG TABLET PO SCH ×3 (14:00→22:45)
[2020-09-07] MEDS: IPRATROPIUM/ALBUTEROL 0.5-3(2.5)MG/3ML NEB HHN PRN ×2 (14:19→16:16)
[2020-09-07 15:10] LABS: ANTI-DNA DOUBLE STRANDED QUANT < 1 IU/mL (0-9); RNP ANTIBODY < 0.2 AI (0.0-0.9); SMITH ANTIBODY < 0.2 AI (0.0-0.9)
[2020-09-07] MEDS: HYDRALAZINE HCL 100MG TABLET PO SCH ×2 (15:59→22:44)
[2020-09-07] MEDS: ATORVASTATIN CALCIUM 40MG TABLET PO SCH (21:35)
[2020-09-08] VITALS (53 sets, daily range): BP systolic 99–189; BP diastolic 59–118
[2020-09-08] MEDS: SODIUM CHLORIDE 0.9% 1,000 ML IV SCH ×2 (00:25→09:10)
[2020-09-08] MEDS ORDERED: DIPHENHYDRAMINE 50MG/ML VIAL IV SCH (03:00)
[2020-09-08 04:29] LABS: HEMATOCRIT. 31.7 % (42.0-52.0); HEMOGLOBIN. 10.6 g/dL (14.0-18.0); MEAN CORPUSCULAR HEMOGLOBIN 28.9 pg (28.0-32.0); MEAN CORPUSCULAR VOLUME 86.4 fL (80.0-94.0); MEAN PLATELET VOLUME 7.8 fl (7.4-10.4); PLATELET 301 x1000/uL (130-400); RED BLOOD CELL COUNT 3.68 mill/uL (4.7-6.1); RED CELL DISTRIBUTION WIDTH 15.9 % (11.6-14.6)
[2020-09-08] MEDS: PIPERACILLIN/TAZOBACTAM 2.25 G in DEXTROSE 5% WATER 50 ML IV SCH ×2 (04:43→08:33)
[2020-09-08] MEDS: HYDRALAZINE HCL 100MG TABLET PO SCH ×4 (06:00→22:39)
[2020-09-08] MEDS: CLONIDINE 0.1MG TABLET PO SCH ×3 (06:00→22:39)
[2020-09-08] MEDS: INSULIN LISPRO 100 UNITS/ML SUBCUT SCH ×4 (06:12→20:53)
[2020-09-08] MEDS: HYDROCORTISONE SOD SUCCINATE 100 MG/2 ML VIAL IV SCH ×3 (06:12→22:39)
[2020-09-08] MEDS: BLOOD SUGAR DIAGNOSTIC STRIP TEST SCH ×4 (06:14→20:49)
[2020-09-08] MEDS: LORAZEPAM 2MG/ML CPJ IV PRN (08:30)
[2020-09-08] MEDS: ENALAPRIL 2.5MG/2ML VIAL 2ML IV PRN (08:30)
[2020-09-08] MEDS: AMLODIPINE 5MG TABLET PO SCH ×2 (08:31→20:55)
[2020-09-08] MEDS: DOCUSATE SODIUM SUGAR FREE 100MG/10ML UDC NG SCH (08:33)
[2020-09-08] MEDS: PANTOPRAZOLE SODIUM 40 MG/VIAL IV SCH (08:33)
[2020-09-08] MEDS: CLONIDINE 0.1MG TABLET PO PRN (08:33)
[2020-09-08] MEDS: MORPHINE SULFATE 2 MG/ML CPJ (NOT FOR IM USE) IV PRN (09:11)
[2020-09-08 12:50] LABS: PLATELET ESTIMATE NORMAL
[2020-09-08 17:06] LABS: ALDOLASE 5.8 U/L (3.3-10.3)
[2020-09-08] MEDS: ATORVASTATIN CALCIUM 40MG TABLET PO SCH (20:54)
[2020-09-09] VITALS (11 sets, daily range): BP systolic 118–173; BP diastolic 67–95
[2020-09-09] MEDS: SODIUM CHLORIDE 0.9% 1,000 ML IV SCH ×2 (00:03→19:44)
[2020-09-09] MEDS: HYDROCORTISONE SOD SUCCINATE 100 MG/2 ML VIAL IV SCH ×3 (05:27→21:15)
[2020-09-09] MEDS: CLONIDINE 0.1MG TABLET PO SCH ×3 (05:27→21:16)
[2020-09-09] MEDS: HYDRALAZINE HCL 100MG TABLET PO SCH ×3 (05:27→21:16)
[2020-09-09] MEDS: BLOOD SUGAR DIAGNOSTIC STRIP TEST SCH ×4 (08:09→20:00)
[2020-09-09] MEDS: PANTOPRAZOLE SODIUM 40 MG/VIAL IV SCH (08:50)
[2020-09-09] MEDS: INSULIN LISPRO 100 UNITS/ML SUBCUT SCH ×4 (08:50→20:08)
[2020-09-09] MEDS: DOCUSATE SODIUM SUGAR FREE 100MG/10ML UDC NG SCH (08:50)
[2020-09-09] MEDS: AMLODIPINE 5MG TABLET PO SCH ×2 (08:51→20:01)
[2020-09-09] MEDS: IPRATROPIUM/ALBUTEROL 0.5-3(2.5)MG/3ML NEB HHN PRN ×4 (09:50→20:21)
[2020-09-09 10:51] LABS: BG BASE EXCESS -5.6 mmol/L (-2.0-2.0); BG CARBOXYHEMOGLOBIN 0.3 % (0.5-1.5); BG DEOXYHEMOGLOBIN 3.3 % (0.0-5.0); BG FRACTION INSPIRED OXYGEN 40; BG HCO3 ACT 18.1 mmol/L (22.0-26.0); BG METHEMOGLOBIN 0.1 % (0.0-1.5); BG OXYGEN SATURATION 96.7 % (92.0-98.5); BG OXYHEMOGLOBIN 96.3 % (94.0-97.0); BG PCO2 29.9 mmHg (35.0-45.0); BG PH 7.401 (7.350-7.450); BG PO2 94.6 mmHg (75.0-100.0); BG SAMPLE SITE RIGHT RADIAL; BG TOTAL HEMOGLOBIN 10.7 g/dL (12.0-18.0); BG VENT MODE VENT - AC
[2020-09-09 17:10] LABS: ANTI-MYELOPEROXIDASE AB < 9.0 U/mL (0.0-9.0); ANTI-PROTEINASE 3 ABS < 3.5 U/mL (0.0-3.5)
[2020-09-09] MEDS: ATORVASTATIN CALCIUM 40MG TABLET PO SCH (20:01)
[2020-09-10] VITALS (14 sets, daily range): BP systolic 148–176; BP diastolic 68–100
[2020-09-10] MEDS: CLONIDINE 0.1MG TABLET PO SCH ×3 (05:09→21:22)
[2020-09-10] MEDS: HYDRALAZINE HCL 100MG TABLET PO SCH ×3 (05:09→21:21)
[2020-09-10] MEDS: HYDROCORTISONE SOD SUCCINATE 100 MG/2 ML VIAL IV SCH ×2 (05:10→13:44)
[2020-09-10 06:44] LABS: BASOPHILS % 0.3 % (0.0-2.0); EOSINOPHILS % 0.2 % (0.0-5.0); HEMATOCRIT. 29.7 % (42.0-52.0); HEMOGLOBIN. 9.9 g/dL (14.0-18.0); LYMPHOCYTES % 7.6 % (20.0-50.0); MEAN CORPUSCULAR HEMOGLOBIN 28.6 pg (28.0-32.0); MEAN CORPUSCULAR VOLUME 86.2 fL (80.0-94.0); MEAN PLATELET VOLUME 7.9 fl (7.4-10.4); NEUTROPHILS % 81.9 % (40.0-76.0); PLATELET 330 x1000/uL (130-400); RED BLOOD CELL COUNT 3.45 mill/uL (4.7-6.1); RED CELL DISTRIBUTION WIDTH 16.3 % (11.6-14.6)
[2020-09-10] MEDS: IPRATROPIUM/ALBUTEROL 0.5-3(2.5)MG/3ML NEB HHN PRN ×3 (07:48→15:07)
[2020-09-10] MEDS: BLOOD SUGAR DIAGNOSTIC STRIP TEST SCH ×4 (07:53→20:10)
[2020-09-10] MEDS: DOCUSATE SODIUM SUGAR FREE 100MG/10ML UDC NG SCH (09:02)
[2020-09-10] MEDS: PANTOPRAZOLE SODIUM 40 MG/VIAL IV SCH (09:02)
[2020-09-10] MEDS: AMLODIPINE 5MG TABLET PO SCH ×2 (09:03→20:06)
[2020-09-10] MEDS: INSULIN LISPRO 100 UNITS/ML SUBCUT SCH ×4 (09:07→20:21)
[2020-09-10] MEDS: INSULIN GLARGINE UD 100 UNITS/ML SYR SUBCUT SCH (13:48)
[2020-09-10 15:07] LABS: ANA IFA Negative (.)
[2020-09-10] MEDS: SODIUM CHLORIDE 0.45% 1,000 ML IV SCH (17:19)
[2020-09-10] MEDS: CLONIDINE 0.1MG TABLET PO PRN (17:25)
[2020-09-10] MEDS: ATORVASTATIN CALCIUM 40MG TABLET PO SCH (20:04)
[2020-09-11] VITALS (10 sets, daily range): BP systolic 140–160; BP diastolic 56–100
[2020-09-11] MEDS: HYDRALAZINE HCL 100MG TABLET PO SCH ×3 (05:57→21:59)
[2020-09-11] MEDS: CLONIDINE 0.1MG TABLET PO SCH ×3 (05:58→21:59)
[2020-09-11 07:04] LABS: BASOPHILS % 0.5 % (0.0-2.0); EOSINOPHILS % 1.2 % (0.0-5.0); HEMOGLOBIN. 10.7 g/dL (14.0-18.0); MEAN CORPUSCULAR HEMOGLOBIN 28.8 pg (28.0-32.0); MEAN CORPUSCULAR VOLUME 86.5 fL (80.0-94.0); MEAN PLATELET VOLUME 8.2 fl (7.4-10.4); MONOCYTES % 11.3 % (2.0-8.0); PLATELET 347 x1000/uL (130-400); RED CELL DISTRIBUTION WIDTH 16.5 % (11.6-14.6)
[2020-09-11] MEDS: BLOOD SUGAR DIAGNOSTIC STRIP TEST SCH ×3 (07:54→18:25)
[2020-09-11] MEDS: PANTOPRAZOLE SODIUM 40 MG/VIAL IV SCH (08:09)
[2020-09-11] MEDS: AMLODIPINE 5MG TABLET PO SCH ×2 (08:09→21:59)
[2020-09-11] MEDS: DOCUSATE SODIUM SUGAR FREE 100MG/10ML UDC NG SCH (08:09)
[2020-09-11] MEDS ORDERED: INSULIN LISPRO 100 UNITS/ML SUBCUT SCH (09:00)
[2020-09-11] MEDS: INSULIN GLARGINE UD 100 UNITS/ML SYR SUBCUT SCH (11:57)
[2020-09-11] MEDS: INSULIN LISPRO 100 UNITS/ML SUBCUT SCH ×2 (11:58→18:29)
[2020-09-11 13:11] LABS: ATYPICAL P-ANCA <1:20 titer (Neg:<1:20); CYTOPLASMIC C-ANCA <1:20 titer (Neg:<1:20); PERINUCLEAR P-ANCA <1:20 titer (Neg:<1:20)
[2020-09-11] MEDS: SODIUM CHLORIDE 0.45% 1,000 ML IV SCH (15:11)
[2020-09-11] MEDS: ATORVASTATIN CALCIUM 40MG TABLET PO SCH (21:59)
[2020-09-12] VITALS (12 sets, daily range): BP systolic 139–165; BP diastolic 75–100
[2020-09-12] MEDS: INSULIN LISPRO 100 UNITS/ML SUBCUT SCH ×6 (00:25→23:40)
[2020-09-12] MEDS: HYDRALAZINE HCL 100MG TABLET PO SCH ×3 (05:57→21:09)
[2020-09-12] MEDS: CLONIDINE 0.1MG TABLET PO SCH (05:57)
[2020-09-12] MEDS: BLOOD SUGAR DIAGNOSTIC STRIP TEST SCH ×5 (05:57→23:40)
[2020-09-12] MEDS: PANTOPRAZOLE SODIUM 40 MG/VIAL IV SCH (08:47)
[2020-09-12] MEDS: DOCUSATE SODIUM SUGAR FREE 100MG/10ML UDC NG SCH (08:47)
[2020-09-12] MEDS: AMLODIPINE 5MG TABLET PO SCH ×2 (08:48→20:31)
[2020-09-12] MEDS: SODIUM CHLORIDE 0.45% 1,000 ML IV SCH (08:58)
[2020-09-12] MEDS: INSULIN GLARGINE UD 100 UNITS/ML SYR SUBCUT SCH (10:25)
[2020-09-12] MEDS: ACETYLCYSTEINE 100MG/ML 10% VIAL 4ML INH SCH ×2 (10:27→16:26)
[2020-09-12] MEDS: IPRATROPIUM/ALBUTEROL 0.5-3(2.5)MG/3ML NEB HHN SCH ×3 (10:29→21:07)
[2020-09-12] MEDS: CLONIDINE 0.1MG TABLET PO PRN (11:17)
[2020-09-12] MEDS: CLONIDINE 0.2MG TABLET PO SCH ×2 (13:47→21:09)
[2020-09-12] MEDS: ATORVASTATIN CALCIUM 40MG TABLET PO SCH (20:30)
[2020-09-13] VITALS (13 sets, daily range): BP systolic 123–161; BP diastolic 64–93
[2020-09-13] MEDS: ACETYLCYSTEINE 100MG/ML 10% VIAL 4ML INH SCH ×3 (00:48→15:38)
[2020-09-13] MEDS: IPRATROPIUM/ALBUTEROL 0.5-3(2.5)MG/3ML NEB HHN SCH ×6 (00:49→20:00)
[2020-09-13] MEDS: HYDRALAZINE HCL 100MG TABLET PO SCH ×3 (05:31→21:36)
[2020-09-13] MEDS: CLONIDINE 0.2MG TABLET PO SCH ×3 (05:31→21:36)
[2020-09-13] MEDS: SODIUM CHLORIDE 0.45% 1,000 ML IV SCH ×2 (05:32→11:37)
[2020-09-13] MEDS: BLOOD SUGAR DIAGNOSTIC STRIP TEST SCH ×4 (05:32→23:18)
[2020-09-13] MEDS: INSULIN LISPRO 100 UNITS/ML SUBCUT SCH ×4 (05:33→23:23)
[2020-09-13] MEDS: PANTOPRAZOLE SODIUM 40 MG/VIAL IV SCH (08:14)
[2020-09-13] MEDS: DOCUSATE SODIUM SUGAR FREE 100MG/10ML UDC NG SCH (08:14)
[2020-09-13] MEDS: ENOXAPARIN 40MG/0.4ML SYR SUBCUT SCH (08:15)
[2020-09-13] MEDS: AMLODIPINE 5MG TABLET PO SCH ×2 (08:15→20:16)
[2020-09-13] MEDS: INSULIN GLARGINE UD 100 UNITS/ML SYR SUBCUT SCH ×2 (13:29→21:45)
[2020-09-13] MEDS: ACETAMINOPHEN 325MG TABLET PO PRN (20:16)
[2020-09-13] MEDS: ATORVASTATIN CALCIUM 40MG TABLET PO SCH (20:16)
[2020-09-14] VITALS (12 sets, daily range): BP systolic 105–152; BP diastolic 64–79
[2020-09-14] MEDS: ACETYLCYSTEINE 100MG/ML 10% VIAL 4ML INH SCH ×2 (00:02→08:30)
[2020-09-14] MEDS: IPRATROPIUM/ALBUTEROL 0.5-3(2.5)MG/3ML NEB HHN SCH ×6 (00:02→20:19)
[2020-09-14] MEDS: ACETAMINOPHEN 325MG TABLET PO PRN ×3 (02:27→17:34)
[2020-09-14] MEDS: CLONIDINE 0.2MG TABLET PO SCH ×3 (05:35→21:18)
[2020-09-14] MEDS: HYDRALAZINE HCL 100MG TABLET PO SCH ×3 (05:35→21:18)
[2020-09-14] MEDS: BLOOD SUGAR DIAGNOSTIC STRIP TEST SCH ×4 (05:35→23:15)
[2020-09-14] MEDS: INSULIN LISPRO 100 UNITS/ML SUBCUT SCH ×4 (06:09→23:17)
[2020-09-14] MEDS ORDERED: POTASSIUM CHLORIDE 20MEQ/PACKET PEG NR (08:15)
[2020-09-14] MEDS: AMLODIPINE 5MG TABLET PO SCH ×2 (08:46→20:25)
[2020-09-14] MEDS: ENOXAPARIN 40MG/0.4ML SYR SUBCUT SCH (08:50)
[2020-09-14] MEDS: DOCUSATE SODIUM SUGAR FREE 100MG/10ML UDC NG SCH (08:50)
[2020-09-14] MEDS: PANTOPRAZOLE SODIUM 40 MG/VIAL IV SCH (08:50)
[2020-09-14] MEDS: INSULIN GLARGINE UD 100 UNITS/ML SYR SUBCUT SCH (10:26)
[2020-09-14] MEDS ORDERED: POTASSIUM CHLORIDE 20MEQ TABLET SR PO SCH (14:00)
[2020-09-14 16:09] LABS: HEMATOCRIT. 27.3 % (42.0-52.0); HEMOGLOBIN. 8.9 g/dL (14.0-18.0); MEAN CORPUSCULAR VOLUME 86.5 fL (80.0-94.0); MEAN PLATELET VOLUME 8.5 fl (7.4-10.4); PLATELET 277 x1000/uL (130-400); RED BLOOD CELL COUNT 3.16 mill/uL (4.7-6.1); RED CELL DISTRIBUTION WIDTH 16.1 % (11.6-14.6)
[2020-09-14 18:02] LABS: PLATELET ESTIMATE NORMAL
[2020-09-14] MEDS: ATORVASTATIN CALCIUM 40MG TABLET PO SCH (20:25)
[2020-09-14] MEDS: SODIUM CHLORIDE 0.45% 1,000 ML IV SCH (20:26)
[2020-09-14] MEDS ORDERED: INSULIN GLARGINE UD 100 UNITS/ML SYR SUBCUT SCH (22:00)
[2020-09-15] VITALS (12 sets, daily range): BP systolic 120–178; BP diastolic 66–100
[2020-09-15] MEDS: IPRATROPIUM/ALBUTEROL 0.5-3(2.5)MG/3ML NEB HHN SCH ×6 (00:40→21:10)
[2020-09-15] MEDS: ACETYLCYSTEINE 100MG/ML 10% VIAL 4ML INH SCH ×3 (00:40→16:40)
[2020-09-15] MEDS: ACETAMINOPHEN 325MG TABLET PO PRN ×2 (03:10→09:27)
[2020-09-15] MEDS: INSULIN LISPRO 100 UNITS/ML SUBCUT SCH ×3 (05:13→17:45)
[2020-09-15] MEDS: BLOOD SUGAR DIAGNOSTIC STRIP TEST SCH ×3 (05:13→17:46)
[2020-09-15] MEDS: CLONIDINE 0.2MG TABLET PO SCH ×3 (05:14→21:23)
[2020-09-15] MEDS: HYDRALAZINE HCL 100MG TABLET PO SCH ×3 (05:14→21:22)
[2020-09-15 06:28] LABS: BASOPHILS % 0.7 % (0.0-2.0); EOSINOPHILS % 3.3 % (0.0-5.0); HEMATOCRIT. 23.6 % (42.0-52.0); HEMOGLOBIN. 7.7 g/dL (14.0-18.0); LYMPHOCYTES % 8.5 % (20.0-50.0); MEAN CORPUSCULAR HEMOGLOBIN 28.3 pg (28.0-32.0); MEAN PLATELET VOLUME 9.2 fl (7.4-10.4); NEUTROPHILS % 79.5 % (40.0-76.0); PLATELET 207 x1000/uL (130-400); RED BLOOD CELL COUNT 2.71 mill/uL (4.7-6.1); RED CELL DISTRIBUTION WIDTH 16.5 % (11.6-14.6)
[2020-09-15 06:38] LABS: CHLORIDE 114 mEq/L (98-107)
[2020-09-15] MEDS ORDERED: POTASSIUM CHLORIDE 20MEQ TABLET SR PO SCH (08:30)
[2020-09-15] MEDS: DOCUSATE SODIUM SUGAR FREE 100MG/10ML UDC NG SCH (09:27)
[2020-09-15] MEDS: PANTOPRAZOLE SODIUM 40 MG/VIAL IV SCH (09:27)
[2020-09-15] MEDS: ENOXAPARIN 40MG/0.4ML SYR SUBCUT SCH (09:28)
[2020-09-15] MEDS: AMLODIPINE 5MG TABLET PO SCH ×2 (09:28→21:23)
[2020-09-15] MEDS: PIPERACILLIN/TAZOBACTAM 3.375 G in DEXT 5% WATER 100 ML IV SCH ×3 (09:29→17:55)
[2020-09-15] MEDS: INSULIN GLARGINE UD 100 UNITS/ML SYR SUBCUT SCH ×2 (11:03→22:00)
[2020-09-15] MEDS: SODIUM CHLORIDE 0.45% 1,000 ML IV SCH (17:41)
[2020-09-15] MEDS: ATORVASTATIN CALCIUM 40MG TABLET PO SCH (21:22)
[2020-09-16] VITALS (16 sets, daily range): BP systolic 105–163; BP diastolic 59–93
[2020-09-16] MEDS: PIPERACILLIN/TAZOBACTAM 3.375 G in DEXT 5% WATER 100 ML IV SCH ×4 (00:28→17:25)
[2020-09-16] MEDS: INSULIN LISPRO 100 UNITS/ML SUBCUT SCH ×4 (00:30→17:26)
[2020-09-16] MEDS: BLOOD SUGAR DIAGNOSTIC STRIP TEST SCH ×4 (00:31→17:19)
[2020-09-16] MEDS: IPRATROPIUM/ALBUTEROL 0.5-3(2.5)MG/3ML NEB HHN SCH ×6 (00:59→21:11)
[2020-09-16] MEDS: ACETYLCYSTEINE 100MG/ML 10% VIAL 4ML INH SCH ×3 (00:59→16:36)
[2020-09-16] MEDS: CLONIDINE 0.2MG TABLET PO SCH ×3 (06:26→21:30)
[2020-09-16] MEDS: HYDRALAZINE HCL 100MG TABLET PO SCH ×3 (06:26→21:30)
[2020-09-16 06:33] LABS: HEMATOCRIT. 27.2 % (42.0-52.0); HEMOGLOBIN. 8.8 g/dL (14.0-18.0); MEAN CORPUSCULAR VOLUME 86.9 fL (80.0-94.0); PLATELET 287 x1000/uL (130-400); RED BLOOD CELL COUNT 3.13 mill/uL (4.7-6.1); RED CELL DISTRIBUTION WIDTH 16.5 % (11.6-14.6)
[2020-09-16] MEDS: ENOXAPARIN 40MG/0.4ML SYR SUBCUT SCH (08:42)
[2020-09-16] MEDS: DOCUSATE SODIUM SUGAR FREE 100MG/10ML UDC NG SCH (08:42)
[2020-09-16] MEDS: PANTOPRAZOLE SODIUM 40 MG/VIAL IV SCH (08:42)
[2020-09-16] MEDS: AMLODIPINE 5MG TABLET PO SCH ×2 (08:42→21:30)
[2020-09-16] MEDS: ACETAMINOPHEN 325MG TABLET PO PRN (08:49)
[2020-09-16 10:05] LABS: PLATELET ESTIMATE NORMAL
[2020-09-16] MEDS: INSULIN GLARGINE UD 100 UNITS/ML SYR SUBCUT SCH ×2 (10:45→22:00)
[2020-09-16] MEDS: SODIUM CHLORIDE 0.45% 1,000 ML IV SCH (17:25)
[2020-09-16] MEDS: ATORVASTATIN CALCIUM 40MG TABLET PO SCH (21:30)
[2020-09-17] VITALS (16 sets, daily range): BP systolic 126–172; BP diastolic 68–90
[2020-09-17] MEDS: PIPERACILLIN/TAZOBACTAM 3.375 G in DEXT 5% WATER 100 ML IV SCH ×5 (00:41→23:26)
[2020-09-17] MEDS: BLOOD SUGAR DIAGNOSTIC STRIP TEST SCH ×5 (00:42→23:20)
[2020-09-17] MEDS: INSULIN LISPRO 100 UNITS/ML SUBCUT SCH ×5 (00:42→23:29)
[2020-09-17] MEDS: ACETYLCYSTEINE 100MG/ML 10% VIAL 4ML INH SCH (00:56)
[2020-09-17] MEDS: IPRATROPIUM/ALBUTEROL 0.5-3(2.5)MG/3ML NEB HHN SCH ×6 (00:57→20:26)
[2020-09-17] MEDS: CLONIDINE 0.2MG TABLET PO SCH ×3 (06:41→23:26)
[2020-09-17] MEDS: HYDRALAZINE HCL 100MG TABLET PO SCH ×3 (06:41→23:26)
[2020-09-17 07:00] LABS: BASOPHILS % 0.3 % (0.0-2.0); EOSINOPHILS % 3.4 % (0.0-5.0); HEMATOCRIT. 24.2 % (42.0-52.0); HEMOGLOBIN. 7.8 g/dL (14.0-18.0); LYMPHOCYTES % 7.6 % (20.0-50.0); MEAN PLATELET VOLUME 9.3 fl (7.4-10.4); MONOCYTES % 7.5 % (2.0-8.0); NEUTROPHILS % 81.2 % (40.0-76.0); PLATELET 270 x1000/uL (130-400); RED BLOOD CELL COUNT 2.78 mill/uL (4.7-6.1); RED CELL DISTRIBUTION WIDTH 16.9 % (11.6-14.6)
[2020-09-17] MEDS: ENOXAPARIN 40MG/0.4ML SYR SUBCUT SCH (09:56)
[2020-09-17] MEDS: AMLODIPINE 5MG TABLET PO SCH ×2 (09:57→20:32)
[2020-09-17] MEDS: DOCUSATE SODIUM SUGAR FREE 100MG/10ML UDC NG SCH (09:57)
[2020-09-17] MEDS: PANTOPRAZOLE SODIUM 40 MG/VIAL IV SCH (10:00)
[2020-09-17] MEDS: INSULIN GLARGINE UD 100 UNITS/ML SYR SUBCUT SCH ×2 (10:02→23:28)
[2020-09-17] MEDS: SODIUM CHLORIDE 0.45% 1,000 ML IV SCH (20:31)
[2020-09-17] MEDS: ATORVASTATIN CALCIUM 40MG TABLET PO SCH (20:32)
[2020-09-18] VITALS (13 sets, daily range): BP systolic 119–173; BP diastolic 59–93
[2020-09-18] MEDS: IPRATROPIUM/ALBUTEROL 0.5-3(2.5)MG/3ML NEB HHN SCH ×6 (00:24→20:07)
[2020-09-18] MEDS: SODIUM CHLORIDE 0.45% 1,000 ML IV SCH ×2 (05:00→18:30)
[2020-09-18] MEDS: BLOOD SUGAR DIAGNOSTIC STRIP TEST SCH ×4 (05:34→23:05)
[2020-09-18] MEDS: HYDRALAZINE HCL 100MG TABLET PO SCH ×3 (05:47→21:14)
[2020-09-18] MEDS: CLONIDINE 0.2MG TABLET PO SCH ×3 (05:47→21:15)
[2020-09-18] MEDS: PIPERACILLIN/TAZOBACTAM 3.375 G in DEXT 5% WATER 100 ML IV SCH ×4 (05:47→23:11)
[2020-09-18] MEDS: INSULIN LISPRO 100 UNITS/ML SUBCUT SCH ×4 (05:48→23:22)
[2020-09-18 06:37] LABS: BASOPHILS % 0.4 % (0.0-2.0); EOSINOPHILS % 3.9 % (0.0-5.0); HEMATOCRIT. 25.3 % (42.0-52.0); HEMOGLOBIN. 8.4 g/dL (14.0-18.0); LYMPHOCYTES % 7.9 % (20.0-50.0); MEAN CORPUSCULAR HEMOGLOBIN 28.6 pg (28.0-32.0); MEAN CORPUSCULAR VOLUME 86.5 fL (80.0-94.0); MONOCYTES % 9.2 % (2.0-8.0); NEUTROPHILS % 78.6 % (40.0-76.0); PLATELET 312 x1000/uL (130-400); RED BLOOD CELL COUNT 2.93 mill/uL (4.7-6.1); RED CELL DISTRIBUTION WIDTH 16.5 % (11.6-14.6)
[2020-09-18] MEDS: AMLODIPINE 5MG TABLET PO SCH ×2 (08:57→20:26)
[2020-09-18] MEDS: PANTOPRAZOLE SODIUM 40 MG/VIAL IV SCH (08:57)
[2020-09-18] MEDS: DOCUSATE SODIUM SUGAR FREE 100MG/10ML UDC NG SCH (08:57)
[2020-09-18] MEDS: ENOXAPARIN 40MG/0.4ML SYR SUBCUT SCH (08:58)
[2020-09-18] MEDS: INSULIN GLARGINE UD 100 UNITS/ML SYR SUBCUT SCH ×2 (10:39→21:25)
[2020-09-18] MEDS: CLONIDINE 0.1MG TABLET PO PRN (13:21)
[2020-09-18] MEDS: ACETAMINOPHEN 325MG TABLET PO PRN (15:03)
[2020-09-18] MEDS: ATORVASTATIN CALCIUM 40MG TABLET PO SCH (20:25)
[2020-09-19] VITALS (11 sets, daily range): BP systolic 124–148; BP diastolic 69–89
[2020-09-19] MEDS: SODIUM CHLORIDE 0.45% 1,000 ML IV SCH ×2 (00:35→21:31)
[2020-09-19] MEDS: IPRATROPIUM/ALBUTEROL 0.5-3(2.5)MG/3ML NEB HHN SCH ×6 (00:54→21:01)
[2020-09-19] MEDS: ACETAMINOPHEN 325MG TABLET PO PRN ×3 (00:55→21:19)
[2020-09-19] MEDS: BLOOD SUGAR DIAGNOSTIC STRIP TEST SCH ×3 (05:32→18:17)
[2020-09-19] MEDS: PIPERACILLIN/TAZOBACTAM 3.375 G in DEXT 5% WATER 100 ML IV SCH ×3 (05:38→18:52)
[2020-09-19] MEDS: CLONIDINE 0.2MG TABLET PO SCH ×3 (05:38→21:57)
[2020-09-19] MEDS: HYDRALAZINE HCL 100MG TABLET PO SCH ×3 (05:38→21:57)
[2020-09-19] MEDS: INSULIN LISPRO 100 UNITS/ML SUBCUT SCH ×3 (05:42→18:54)
[2020-09-19 07:07] LABS: BASOPHILS % 0.7 % (0.0-2.0); EOSINOPHILS % 3.9 % (0.0-5.0); HEMATOCRIT. 23.2 % (42.0-52.0); HEMOGLOBIN. 7.7 g/dL (14.0-18.0); LYMPHOCYTES % 9.4 % (20.0-50.0); MEAN CORPUSCULAR HEMOGLOBIN 28.6 pg (28.0-32.0); MEAN CORPUSCULAR VOLUME 86.5 fL (80.0-94.0); MEAN PLATELET VOLUME 9.1 fl (7.4-10.4); PLATELET 313 x1000/uL (130-400); RED BLOOD CELL COUNT 2.69 mill/uL (4.7-6.1); RED CELL DISTRIBUTION WIDTH 16.9 % (11.6-14.6)
[2020-09-19] MEDS: AMLODIPINE 5MG TABLET PO SCH ×2 (08:17→21:22)
[2020-09-19] MEDS: ENOXAPARIN 40MG/0.4ML SYR SUBCUT SCH (08:17)
[2020-09-19] MEDS: PANTOPRAZOLE SODIUM 40 MG/VIAL IV SCH (08:17)
[2020-09-19] MEDS: DOCUSATE SODIUM SUGAR FREE 100MG/10ML UDC NG SCH (08:17)
[2020-09-19] MEDS: INSULIN GLARGINE UD 100 UNITS/ML SYR SUBCUT SCH ×2 (10:39→22:03)
[2020-09-19] MEDS: HYDROCODONE/ACETAMINOPHEN 5/325MG TABLET GT PRN (12:12)
[2020-09-19 16:00] LABS: BG BASE EXCESS 1.5 mmol/L (-2.0-2.0); BG CARBOXYHEMOGLOBIN 0.3 % (0.5-1.5); BG DEOXYHEMOGLOBIN 6.5 % (0.0-5.0); BG FRACTION INSPIRED OXYGEN 35; BG HCO3 ACT 25.4 mmol/L (22.0-26.0); BG METHEMOGLOBIN 0.3 % (0.0-1.5); BG OXYGEN SATURATION 93.5 % (92.0-98.5); BG OXYHEMOGLOBIN 92.9 % (94.0-97.0); BG PCO2 36.8 mmHg (35.0-45.0); BG PH 7.456 (7.350-7.450); BG PO2 71.6 mmHg (75.0-100.0); BG SAMPLE SITE LEFT RADIAL; BG TOTAL HEMOGLOBIN 8.3 g/dL (12.0-18.0); BG VENT MODE VENT - SIMV
[2020-09-19] MEDS: ATORVASTATIN CALCIUM 40MG TABLET PO SCH (21:21)
[2020-09-20] VITALS (12 sets, daily range): BP systolic 115–146; BP diastolic 57–77
[2020-09-20] MEDS: BLOOD SUGAR DIAGNOSTIC STRIP TEST SCH ×5 (00:04→23:37)
[2020-09-20] MEDS: PIPERACILLIN/TAZOBACTAM 3.375 G in DEXT 5% WATER 100 ML IV SCH (00:05)
[2020-09-20] MEDS: INSULIN LISPRO 100 UNITS/ML SUBCUT SCH ×5 (00:08→23:36)
[2020-09-20] MEDS: IPRATROPIUM/ALBUTEROL 0.5-3(2.5)MG/3ML NEB HHN SCH ×5 (00:51→20:20)
[2020-09-20] MEDS: HYDROCODONE/ACETAMINOPHEN 5/325MG TABLET GT PRN ×2 (02:16→09:50)
[2020-09-20] MEDS: HYDRALAZINE HCL 100MG TABLET PO SCH ×3 (06:11→23:05)
[2020-09-20] MEDS: CLONIDINE 0.2MG TABLET PO SCH ×3 (06:12→22:00)
[2020-09-20 06:25] LABS: BASOPHILS % 0.3 % (0.0-2.0); EOSINOPHILS % 4.7 % (0.0-5.0); HEMATOCRIT. 24.3 % (42.0-52.0); HEMOGLOBIN. 8.1 g/dL (14.0-18.0); LYMPHOCYTES % 9.4 % (20.0-50.0); MEAN CORPUSCULAR VOLUME 86.5 fL (80.0-94.0); MEAN PLATELET VOLUME 8.6 fl (7.4-10.4); MONOCYTES % 9.7 % (2.0-8.0); NEUTROPHILS % 75.9 % (40.0-76.0); PLATELET 353 x1000/uL (130-400); RED BLOOD CELL COUNT 2.81 mill/uL (4.7-6.1); RED CELL DISTRIBUTION WIDTH 17.1 % (11.6-14.6)
[2020-09-20] MEDS: DOCUSATE SODIUM SUGAR FREE 100MG/10ML UDC NG SCH (09:49)
[2020-09-20] MEDS: ENOXAPARIN 40MG/0.4ML SYR SUBCUT SCH (09:49)
[2020-09-20] MEDS: PANTOPRAZOLE SODIUM 40 MG/VIAL IV SCH (09:49)
[2020-09-20] MEDS: AMLODIPINE 5MG TABLET PO SCH ×2 (09:50→23:07)
[2020-09-20] MEDS: INSULIN GLARGINE UD 100 UNITS/ML SYR SUBCUT SCH ×2 (09:51→23:37)
[2020-09-20] MEDS: SODIUM CHLORIDE 0.45% 1,000 ML IV SCH (16:07)
[2020-09-20] MEDS ORDERED: RISPERIDONE 0.5MG TABLET PO SCH (19:45)
[2020-09-20] MEDS: RISPERIDONE 0.5MG TABLET GT SCH (23:05)
[2020-09-20] MEDS: ATORVASTATIN CALCIUM 40MG TABLET PO SCH (23:06)
[2020-09-21] VITALS (7 sets, daily range): BP systolic 101–139; BP diastolic 55–78
[2020-09-21] MEDS: IPRATROPIUM/ALBUTEROL 0.5-3(2.5)MG/3ML NEB HHN SCH ×3 (00:44→08:12)
[2020-09-21] MEDS: HYDROCODONE/ACETAMINOPHEN 5/325MG TABLET GT PRN (02:20)
[2020-09-21] MEDS: BLOOD SUGAR DIAGNOSTIC STRIP TEST SCH (06:08)
[2020-09-21] MEDS: CLONIDINE 0.2MG TABLET PO SCH (06:08)
[2020-09-21] MEDS: HYDRALAZINE HCL 100MG TABLET PO SCH (06:08)
[2020-09-21] MEDS: INSULIN LISPRO 100 UNITS/ML SUBCUT SCH (06:31)
[2020-09-21] MEDS: RISPERIDONE 0.5MG TABLET GT SCH ×2 (08:45→09:34)
[2020-09-21] MEDS: LORAZEPAM 2MG/ML CPJ IV NR ×2 (08:51→09:14)
[2020-09-21] MEDS: AMLODIPINE 5MG TABLET PO SCH (09:00)
[2020-09-21] MEDS: PANTOPRAZOLE SODIUM 40 MG/VIAL IV SCH (09:14)
[2020-09-21] MEDS: DOCUSATE SODIUM SUGAR FREE 100MG/10ML UDC NG SCH (09:14)
[2020-09-21] MEDS: ENOXAPARIN 40MG/0.4ML SYR SUBCUT SCH (09:15)
== END 2020-09-21 10:55 | DRG 4 ==
LOC: ER 10:41 → EDBD 11:54 → 5EST 11:54 → EDBEDREQ 11:58 → ENRESERV 12:16 → MICUNO 08-29 10:43 → 5EST 08-30 14:10 → MICUNO 09-03 16:07 → 5EST 09-08 13:02
PROVIDERS: ADMIT Internal Medicine Nephrology; ATTEND Internal Medicine Nephrology
PROC: 0BH17EZ Insertion of Endotracheal Airway into Trachea, Via Natural or Artificial Opening (ICD-10-PCS; 2020-08-29)
PROC: 02HV33Z Insertion of Infusion Device into Superior Vena Cava, Percutaneous Approach (ICD-10-PCS; 2020-08-29)
PROC: B548ZZA Ultrasonography of Superior Vena Cava, Guidance (ICD-10-PCS; 2020-08-29)
PROC: 5A1935Z Respiratory Ventilation, Less than 24 Consecutive Hours (ICD-10-PCS; 2020-08-29)
PROC: 5A1955Z Respiratory Ventilation, Greater than 96 Consecutive Hours (ICD-10-PCS; 2020-09-03)
PROC: 0DH63UZ Insertion of Feeding Device into Stomach, Percutaneous Approach (ICD-10-PCS; 2020-09-04)
PROC: 0DB78ZX Excision of Stomach, Pylorus, Via Natural or Artificial Opening Endoscopic, Diagnostic (ICD-10-PCS; 2020-09-04)
PROC: 0B110F4 Bypass Trachea to Cutaneous with Tracheostomy Device, Open Approach (ICD-10-PCS; principal; 2020-09-06)
PROC: 0GBJ0ZZ Excision of Thyroid Gland Isthmus, Open Approach (ICD-10-PCS; 2020-09-06)
DX: I63.9 Cerebral infarction, unspecified (principal); J69.0 Pneumonitis due to inhalation of food and vomit; E11.65 Type 2 diabetes mellitus with hyperglycemia; E78.00 Pure hypercholesterolemia, unspecified; E78.5 Hyperlipidemia, unspecified; E87.1 Hypo-osmolality and hyponatremia; G81.94 Hemiplegia, unspecified affecting left nondominant side; H49.01 Third [oculomotor] nerve palsy, right eye; H51.0 Palsy (spasm) of conjugate gaze; I10 Essential (primary) hypertension; I16.1 Hypertensive emergency; I65.1 Occlusion and stenosis of basilar artery; G93.40 Encephalopathy, unspecified; R13.10 Dysphagia, unspecified; E87.2 Acidosis; D63.8 Anemia in other chronic diseases classified elsewhere; E87.0 Hyperosmolality and hypernatremia; H02.401 Unspecified ptosis of right eyelid; H54.61 Unqualified visual loss, right eye, normal vision left eye; I08.1 Rheumatic disorders of both mitral and tricuspid valves; I65.29 Occlusion and stenosis of unspecified carotid artery; R26.9 Unspecified abnormalities of gait and mobility; J96.01 Acute respiratory failure with hypoxia; Z20.828 Contact with and (suspected) exposure to other viral communicable diseases; J96.02 Acute respiratory failure with hypercapnia; E87.8 Other disorders of electrolyte and fluid balance, not elsewhere classified; K29.70 Gastritis, unspecified, without bleeding; N17.0 Acute kidney failure with tubular necrosis; I77.6 Arteritis, unspecified; Z91.19 Patient's noncompliance with other medical treatment and regimen; Z78.1 Physical restraint status; Z91.14 Patient's other noncompliance with medication regimen
CPT/HCPCS: 36415; 36600; 70496; 70551; 71045; 76770; 76937; 80048; 80053; 80061; 80202; 80305; 80320; 81003; 81400; 81403; 81407; 81479; 82085; 82140; 82164; 82375; 82607; 82746; 82805; 82962; 83036; 83520; 83721; 84439; 84443; 84478; 84481; 84484; 85025; 85300; 85303; 85306; 85379; 85613; 85651; 85732; 86147; 86160; 86225; 86235; 86256; 86592; 86780; 87070; 87426; 88305; 88313; 92523; 92610; 93005; 93306; 93880; 93970; 94002; 94003; 94640; 97162; 97164; 97166; 97168; 97530; 97535; 99291; A6261; C1725; C1769; C9113; J0690; J0696; J1200; J1650; J1720; J1815; J2060; J2250; J2270; J2405; J2543; J2704; J2765; J3010; J3370; J3490; J7030; J7040; J7050; J7060; J7070; J7608; Q9967; A4315; G0480

== ENCOUNTER 2020-09-21 12:35 | Emergency (ER) | payer MEDICAID ==
[~2020-09-21] VITALS: Ht 175.3 cm; Wt 77.0 kg
[2020-09-21 17:46] VITALS: BP 136/80
== END 2020-09-21 18:32 ==
LOC: ER 12:35 → CANBEDREQ 18:20 → ER 18:32
DX: I63.9 Cerebral infarction, unspecified (principal); I10 Essential (primary) hypertension
CPT/HCPCS: 71045; 93005; 94003; 99285